=== PATIENT | male | born 1955 | race Caucasian/White ===

== ENCOUNTER → 2023-07-04 | Day surgery (SDC) | payer OTHER ==
[~2023-07-04] VITALS: Ht 180.3 cm; Wt 125.2 kg
[~2023-07-04] MED LIST: VICODIN 5/500 505 MG PO
[2023-07-04 09:51] VITALS: BP 132/61
[2023-07-04 12:35] VITALS: BP 143/77
[2023-07-04 12:50] VITALS: BP 142/76
[2023-07-04 13:02] VITALS: BP 138/80
== END | disposition home or self-care (01) ==
LOC: SDC 06-30 11:00
PROVIDERS: ATTEND Surgery
DX: Z12.11 Encounter for screening for malignant neoplasm of colon (principal); D12.8 Benign neoplasm of rectum; D12.2 Benign neoplasm of ascending colon; I48.91 Unspecified atrial fibrillation; F17.210 Nicotine dependence, cigarettes, uncomplicated; Z86.010 Personal history of colon polyps; I10 Essential (primary) hypertension; E78.00 Pure hypercholesterolemia, unspecified; E11.9 Type 2 diabetes mellitus without complications; Z79.899 Other long term (current) drug therapy; Z98.890 Other specified postprocedural states